=== PATIENT | male | born 1985 ===

== ENCOUNTER 2016-11-28 20:36 | Emergency (ER) | payer OTHER ==
[~2016-11-28] VITALS: Ht 172.7 cm; Wt 78.7 kg
[2016-11-28 20:54] VITALS: BP 140/88; PULSE 66; TEMP 36.7; O2SAT 98; Ht 172.7 cm; Wt 78.7 kg
[2016-11-28] MEDS ORDERED: RANITAB33 PO (21:05)
--- NOTE | 2016-11-28 21:25 | EMERGENCY ROOM VISIT NOTE ---
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 Patient was assisting with an intensive care patient. During removal of a transducer, the patient developed arterial bleeding which caused approximately 5-7 mL of blood splatter across the physician's left arm. There is no broken skin. He denies any mucous membrane exposure in his eyes or mouth. Source patient is known. He is reportedly 80 years old and in room 110. History of the source patient is not known at this time. [employer] employee works here in the hospital and is currently on the hospitalist service. He has had the hepatitis B. vaccination, with recent titers. He believes his tetanus is up-to-date. Pain is 0/10. Supplemental sheet was reviewed and signed. Past medical history: Mild asthma Previous surgeries: None Current Medications: Zantac daily Allergies: None Family History: Significant for hypertension and cancer. Parents are living. Social History: Employed as a physician. No tobacco use, occasional EtOH use. ROS: HEENT: No dizziness, visual problems, hearing loss, or tinnitus. There is no difficulty swallowing and no oral lesions are present. PULMONARY: No cough, shortness of breath, sputum production or hemoptysis. CARDIOVASCULAR: No chest pain, palpitations, shortness of breath or peripheral edema. GASTROINTESTINAL: No diarrhea, constipation, nausea, vomiting, or abdominal pain. GENITOURINARY: No dysuria, frequency, urgency or nocturia. NEUROLOGIC: No weakness, muscle tenderness, epilepsy or history of neurological problems. MUSCULOSKELETAL: No history of joint tenderness/swelling. No history of arthritis or arthralgias. SKIN: No rashes or lesions. PSYCHIATRIC: No history of depression or mental illness. ENDOCRINE: No history of diabetes, thyroid disorders, or abnormal hair growth. Physical Exam: Vitals: Afebrile. Reviewed and filed in patient's chart Skin: Warm and dry with good turgor. No rashes. No ecchymosis or erythema. The patient is not diaphoretic. No abrasions. There is no broken skin on the left arm. No edema. He has already washed off all of the previous blood. Musculoskeletal: Patient has full active range of motion of the left elbow and wrist. Normal strength. Neurologic: Gross sensation is intact across the left arm. Capillary refill is equal to the other fingers. Impression: Blood exposure left arm Plan: Option of HIV testing and hepatitis B testing was discussed with the patient. He elected not to proceed. He would like to wait and see what the testing from the source patient shows before obtaining any lab work. He is well aware of potential risks. He was given a Hibiclens scrub brush to clean his left arm a second time. Patient was given information on prevention of exposure and transmission as well as hospital confidentiality. Blood exposure handout was provided. Patient elected to avoid antivirals at this time. He will follow-up with employee health. Return to the ED for any other concerns. Current/Historical Medications Scheduled PRN Ranitidine Hcl (Zantac), 75 MG PO DAILY PRN for GI Upset Allergies Coded Allergies: No Known Allergies (Unverified , 11/28/16) Vital Signs Date Time Temp Pulse Resp B/P (MAP) Pulse Ox O2 Delivery O2 Flow Rate FiO2 11/28/16 20:54 36.7 66 18 140/88 98 Room Air Departure Information Impression Primary Impression: Employee exposure to body fluids Dispostion Home / Self-Care Forms WORK / SCHOOL INSTRUCTIONS, HOME CARE DOCUMENTATION FORM, IMPORTANT VISIT INFORMATION Patient Instructions [facility]ly [facility], ED Body Fluid Exp HC Worker Additional Instructions Monitor the area for any breaks in the skin Obtain further blood testing if the source patient is found to be positive for hepatitis or HIV Return to the ED for any other concerns or follow-up with employee health
== END 2016-11-28 21:20 | disposition home or self-care (01) ==
LOC: C.EDB 20:38 → C.EDD 21:20
DX: Z77.21 Contact with and (suspected) exposure to potentially hazardous body fluids (principal); J45.909 Unspecified asthma, uncomplicated; Z82.49 Family history of ischemic heart disease and other diseases of the circulatory system